=== PATIENT | female | born 1985 | race Caucasian/White ===

== ENCOUNTER 2016-05-20 12:03 | Emergency (ER) | payer OTHER ==
[~2016-05-20] VITALS: Ht 170.2 cm; Wt 101.9 kg
[~2016-05-20 12:03] MED LIST: ASPIR 8181 M1 PO; COREG3.125 M1 PO; CYMBALTA60 MG PO; DOXYCYCLINE HY100 MG PO; GLUCOPHAGE500 MG PO; HYDROXYCHLOROQ200 MG PO; KEPPRA250 MG PO; KEPPRA500 MG PO; LEVOFLOXACIN500 MG PO; LIPITOR20 MG PO; LIPITOR40 MG PO; LIPITOR80 MG PO; MAGNESIUM250 M1 PO; MAGNESIUM400 MG PO; MECLIZINE HCL25 MG PO; MOBIC15 MG PO; MOBIC7.5 MG PO; MOTRIN800 MG PO; OMNICEF300 MG PO; ONDANSETRON HCL4 MG PO; PERCOCET 5/31 TABLET PO; PLAQUENIL200 MG PO; PREDNISONE20 MG PO; PRINIVIL20 MG PO; ST. JOSEPH ASPI81 MG PO; TERAZOL 745 GM VG; TOPAMAX100 MG PO; ZOFRAN4 MG PO
[2016-05-20 12:12] VITALS: BP 119/94
[2016-05-20] MEDS ORDERED: INDOCIN50 MG PO (13:18)
== END 2016-05-20 13:40 | disposition home or self-care (01) ==
LOC: EME 12:03
DX: J20.9 Acute bronchitis, unspecified (principal); B34.9 Viral infection, unspecified; Z88.1 Allergy status to other antibiotic agents; Z88.0 Allergy status to penicillin
CPT/HCPCS: 71020; 99281; 99283

== ENCOUNTER 2016-05-27 05:20 | Emergency (ER) | payer OTHER ==
[~2016-05-27] VITALS: Ht 170.2 cm; Wt 100.7 kg
[~2016-05-27 05:20] MED LIST changes: +INDOCIN50 MG PO
[2016-05-27 06:33] LABS: ADD MIUA? YES
[2016-05-27 06:34] LABS: COLOR AMBER ((YELLOW)); GLUCOSE (STRIP) NEGATIVE; LEUKOCYTES NEGATIVE; NITRITE NEGATIVE; PROTEIN (STRIP) TRACE
[2016-05-27 06:35] LABS: BILIRUBIN SMALL; BLOOD NEGATIVE; KETONES NEGATIVE; UROBILINOGEN 0.2 MG/DL (0.2-1.0)
[2016-05-27 06:44] LABS: BACTERIA NONE SEEN /HPF; CRYSTALS PRESENT; EPITHELIAL CELLS RARE /HPF; MUCUS NONE SEEN /LPF; RED BLOOD CELLS NONE SEEN /HPF (0-5); UCUL ADDED? NO; WHITE BLOOD CELLS NONE SEEN /HPF (0-5)
[2016-05-27 06:45] LABS: AMORPHOUS URATES CRYSTALS 3+
[2016-05-27 06:59] LABS: BASOPHIL COUNT 0.1 K/uL (0-0.1); EOSINOPHIL (%) 2.4 % (0-5); EOSINOPHIL COUNT 0.4 K/uL (0-0.3); HEMATOCRIT 39.9 % (36.0-46.0); IMMATURE GRANULOCYTE (%) 0.5 % (0.0-0.7); IMMATURE GRANULOCYTE COUNT 0.1 K/uL; INSTRUMENT ABS NEUTROPHIL CT 12.2 K/uL; LYMPHOCYTE COUNT 1.4 K/uL (1.0-2.8); MCH 28.5 PG (29.0-34.0); MCHC 32.8 G/DL (30.0-36.0); MCV 86.9 FL (83-99); MEAN PLAT.VOLUME 9.4 uM^3 (9.5-12.4); MONOCYTE (%) 4.8 % (3-12); MONOCYTE COUNT 0.7 K/uL (0-0.8); NEUTROPHIL (%) 82.3 % (45-76); NEUTROPHIL COUNT 12.2 K/uL (1.8-6.4); PLATELET COUNT 405 K/uL (156-360); RBC DIS.WIDTH-CV 12.1 % (11.8-14.6); RBC DIS.WIDTH-SD 38.5 % (39-53); RED BLOOD COUNT 4.59 M/uL (3.80-5.20); WHITE BLOOD COUNT 14.9 K/uL (4.1-10.2)
[2016-05-27 07:09] LABS: CHLORIDE 108 mEq/L (99-109); POTASSIUM 4.1 mEq/L (3.7-5.4); SODIUM 138 mEq/L (136-147)
[2016-05-27 07:11] LABS: GLUCOSE 117 mg/dL (70-99)
[2016-05-27 07:13] LABS: ANION GAP 6 MEQ/L (2-14)
[2016-05-27 07:15] LABS: GFR ESTIMATE (CALCULATED) > 59 mL/min/
[2016-05-27 07:16] LABS: UREA NITROGEN (BUN) 16 mg/dL (9-23)
[2016-05-27 07:24] LABS: QUANTITATIVE HCG < 4.0 MIU/ML
[2016-05-27] MEDS ORDERED: PERCOCET 5/31 TABLET PO (09:31)
[2016-05-27 09:50] VITALS: BP 113/79
== END 2016-05-27 09:51 | disposition home or self-care (01) ==
LOC: EME 05:20
PROVIDERS: Emergency Medicine
DX: R10.9 Unspecified abdominal pain (principal); M79.7 Fibromyalgia; R56.9 Unspecified convulsions; M32.9 Systemic lupus erythematosus, unspecified
CPT/HCPCS: 74176; 80048; 81003; 84702; 85025; 99281; 99285; J2270; J2405; J7030

== ENCOUNTER 2017-02-18 06:22 | Emergency (ER) | payer OTHER ==
[~2017-02-18] VITALS: Ht 170.2 cm; Wt 103.7 kg
[2017-02-18] MEDS ORDERED: GUAIFENESIN600 M1 PO (07:40)
[2017-02-18] MEDS ORDERED: TOPIRAMATE50 MG PO (07:40)
[2017-02-18] MEDS ORDERED: FLONASE16 G1 BOTH NARES (07:40)
[2017-02-18] MEDS ORDERED: ZYRTEC10 M2 PO (07:40)
[2017-02-18 08:10] VITALS: BP 109/74
== END 2017-02-18 08:11 | disposition home or self-care (01) ==
LOC: EME 06:22
DX: J32.9 Chronic sinusitis, unspecified (principal); J30.2 Other seasonal allergic rhinitis; G40.909 Epilepsy, unspecified, not intractable, without status epilepticus; Z91.14 Patient's other noncompliance with medication regimen; M32.9 Systemic lupus erythematosus, unspecified; Z86.011 Personal history of benign neoplasm of the brain; R05 Cough; Z97.5 Presence of (intrauterine) contraceptive device; Z79.82 Long term (current) use of aspirin; Z88.0 Allergy status to penicillin; Z88.1 Allergy status to other antibiotic agents
CPT/HCPCS: 99281; 99284

== ENCOUNTER 2017-03-05 20:12 | Emergency (ER) | payer OTHER ==
[~2017-03-05] VITALS: Ht 170.2 cm; Wt 90.0 kg
[~2017-03-05 20:12] MED LIST changes: +FLONASE16 G1 BOTH NARES; +GUAIFENESIN600 M1 PO; +TOPIRAMATE50 MG PO; +ZYRTEC10 M2 PO
[2017-03-05 21:23] LABS: HEMATOCRIT 39.2 % (36.0-46.0); MCH 28.8 PG (29.0-34.0); MCHC 33.7 G/DL (30.0-36.0); MCV 85.6 FL (83-99); PLATELET COUNT 406 K/uL (156-360); RBC DIS.WIDTH-CV 12.3 % (11.8-14.6); RBC DIS.WIDTH-SD 38.4 % (39-53); RED BLOOD COUNT 4.58 M/uL (3.80-5.20)
[2017-03-05 21:31] LABS: CHLORIDE 106 mEq/L (99-109); POTASSIUM 3.7 mEq/L (3.7-5.4); SODIUM 138 mEq/L (136-147)
[2017-03-05 21:33] LABS: GLUCOSE 129 mg/dL (70-99)
[2017-03-05 21:34] LABS: ANION GAP 8 MEQ/L (2-14)
[2017-03-05 21:37] LABS: GFR ESTIMATE (CALCULATED) > 59 mL/min/; UREA NITROGEN (BUN) 8 mg/dL (9-23)
[2017-03-05 21:44] LABS: TROP-I INTERPRETATION NEGATIVE; TROPONIN-I < 0.01 ng/mL (0.0-0.30)
[2017-03-05 23:02] LABS: D-DIMER ELISA < 150.00 ng/mLDDU (<230)
[2017-03-05 23:03] LABS: TOTAL BILIRUBIN 0.4 mg/dL (0.0-1.0)
[2017-03-05 23:04] LABS: ALKALINE PHOSPHATASE 59 IU/L (3-129)
[2017-03-05 23:06] LABS: DIRECT BILIRUBIN 0.1 mg/dL (0.0-0.3)
[2017-03-05 23:07] LABS: LIPASE 26 U/L (1.0-51.0)
[2017-03-06 01:09] LABS: TROP-I INTERPRETATION NEGATIVE; TROPONIN-I < 0.01 ng/mL (0.0-0.30)
[2017-03-06] MEDS ORDERED: PERCOCET 5/31 TABLET PO (01:35)
[2017-03-06 01:55] VITALS: BP 105/70
== END 2017-03-06 01:56 | disposition home or self-care (01) ==
LOC: EME 20:12
PROVIDERS: Emergency Medicine
DX: R07.89 Other chest pain (principal); R10.11 Right upper quadrant pain; M32.9 Systemic lupus erythematosus, unspecified; M79.7 Fibromyalgia; Z86.73 Personal history of transient ischemic attack (TIA), and cerebral infarction without residual deficits; Z79.82 Long term (current) use of aspirin; Z97.5 Presence of (intrauterine) contraceptive device; Z88.1 Allergy status to other antibiotic agents; Z88.5 Allergy status to narcotic agent; Z88.0 Allergy status to penicillin
CPT/HCPCS: 71020; 76705; 80048; 80076; 83690; 84484; 85027; 85379; 93005; 99281; 99285; J1885; J2765